=== PATIENT | female | born 1965 | race Caucasian/White ===

== ENCOUNTER → 2021-05-30 09:55 | Outpatient (BNVA) | payer BC, SELFPAY | PROVIDERS: Visit Provider Nurse Practitioner Family | DX: Z20.822 Contact with and (suspected) exposure to COVID-19 (principal) | CPT/HCPCS: 87635 ==

== ENCOUNTER → 2022-07-23 09:22 | Outpatient (BNVA) | payer OTHER, SELFPAY | PROVIDERS: Visit Provider Family Medicine | DX: I10 Essential (primary) hypertension (principal); R73.03 Prediabetes | CPT/HCPCS: 80061; 84439; 84443; 85025 ==

== ENCOUNTER → 2022-10-02 09:18 | Outpatient (BNVA) | payer OTHER, SELFPAY | PROVIDERS: Visit Provider Family Medicine | DX: M79.672 Pain in left foot (principal); W19.XXXA Unspecified fall, initial encounter | CPT/HCPCS: 73630 ==

== ENCOUNTER 2023-02-05 09:58 | Emergency (ER) | payer OTHER, SELFPAY ==
--- NOTE | 2023-02-05 10:05 | XR_ITS ---
WS: [id number] EXAMINATION: XR chest 1V portable [id number] REASON FOR EXAM: chest pain ORDER DATE: 02/05/2023 10:05 AM FINDINGS: There are perihilar and parenchymal granulomatous calcifications. Cardiomegaly is demonstrated. Ther e are no pleural effusions. XR/XR chest 1V portable [id number] IMPRESSION: CARDIOMEGALY WITH NO ACUTE PULMONARY CHANGE.
[2023-02-05 10:14] VITALS: BP 141/78; PULSE 70; RESP 19; TEMP 36.1; O2SAT 94; BMI 53.7
--- NOTE | 2023-02-05 10:21 | ECG_ITS ---
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 Measurements Intervals [place] Rate: 72 P: 51 CT: 187 QRS: 62 QRSD: 78 T: 35 QT: 355 QTc: 389 Interpretive Statements SINUS RHYTHM LOW QRS VOLTAGE IN PRECORDIAL LEADS [QRS DEFLECTION < 1.0 mV IN CHEST LEADS] POSSIBLE RIGHT VENTRICULAR CONDUCTION DELAY [RSR (QR) IN V1/V2] No previous ECG available for comparison Electronically Signed On 02-05-2023 21:05:09 CDT by Mario Oliva M.D. [id number]
[2023-02-05 10:23] VITALS: BP 106/84; PULSE 74; RESP 18; O2SAT 96
[2023-02-05 10:32] LABS: Basophils # 0.1 10^3/uL (0.0-0.1); Basophils % 0.5 %; Eosinophils # 0.2 10^3/uL (0.0-0.8); Eosinophils % 1.9 %; Hematocrit 50.1 % (37.0-47.0); Hemoglobin 15.9 g/dL (11.5-15.3); Lymphocytes % 23.8 %; Mean Corpuscular HGB Conc 31.7 g/dL (30.0-36.0); Mean Corpuscular Volume 88.4 fl (81-99); Mean Platelet Volume 9.7 fL (7.4-10.4); Monocytes # 0.9 10^3/uL (0.2-0.9); Monocytes % 7.3 %; Neutrophils # 8.29 10^3/uL (1.8-7.7); Neutrophils % 66.2 %; Nucleated Red Blood Cells % 0 %; Platelet Count 353 10^3/cmm (130-400); Red Blood Count 5.67 10^6/uL (4.1-5.3); Red Cell Distribution Width 14.7 % (12.1-15.1); White Blood Count 12.5 10^3/uL (4.0-10.0)
--- NOTE | 2023-02-05 10:32 | W.ED.SOB ---
HPI - SOB/Dyspnea General: Chief Complaint: Chest Pain Stated Complaint: Chest Pains and Pressure Time Seen by Provider: 02/05/23 10:15 Source: patient Mode of arrival: ambulatory Limitations: no limitations History of Present Illness: HPI Narrative: Patient is a 57-year-old female with a history of HTN, borderline diabetes on metformin, GERD, lower extremity swelling currently being treated with Lasix and morbid obesity here for concerns of shortness of breath and worsening lower leg swelling. Patient states she has been having intermittent twinges in the left side of her chest for several months now. She states she was not overly concerned with these until she began noticing worsening leg swelling and shortness of breath. She had been seeing her primary care for her leg swelling who had placed her on Lasix. This medication was actually increased a week ago but has not helped. Patient feels like she gets winded very easily with minimal exertion and feels like shortness of breath is worse with lying down as well. She has no known history of CHF. Has never had an echocardiogram. She states she believes she has an appointment with cardiology scheduled for next week. MD elicited complaint: shortness of breath and chest pain Onset (ago): day(s) Timing: constant Severity: moderate Exacerbating factors: lying flat and exertion Relieving factors: nothing Associated symptoms: Reports chest pain and orthopnea; Deny abdominal pain, chest congestion, dizziness, fever(s), hemoptysis, lightheadedness, nausea, palpitations, syncope or vomiting Treatment prior to arrival: none Related Data: Home oxygen amount: none Review of Systems Const: Denies: fever(s), chills, body aches, fatigue or malaise Card: Reports: chest pain, edema, swelling of feet/ankles, dyspnea on exertion and orthopnea; Denies: palpitations, irregular heart rhythm, lightheadedness, syncope, pre-syncope, leg pain with exertion or acrocyanosis Resp: Reports: dyspnea; Denies: productive cough, non-productive cough, wheezing, hemoptysis or chest congestion GI: Denies: abdominal pain, nausea, vomiting, diarrhea or change in bowel habits : Denies: flank pain, dysuria or hematuria Musc: Reports: extremity swelling; Denies: neck pain, back pain, joint redness or joint warmth Skin/Breast: Denies: rash Neuro: Denies: headache(s), numbness in extremities, weakness in extremities, sensory changes or dizziness [facility] ED PFSH: Medical History Hypertension Prediabetes Social History Smoking and tobacco status: current every day smoker cigarettes Packs smoked per day: 1 Alcohol intake: current Alcohol intake frequency: few times a week Alcohol type: hard liquor Physical Exam Const: COMMON NORMALS: no acute distress, patient oriented x3, no limitations and alert GENERAL APPEARANCE: cooperative NUTRITIONAL APPEARANCE: obese morbidly obese ORIENTATION/CONSCIOUSNESS: Yes awake, Yes oriented to person, Yes oriented to place and Yes oriented to time HENMT: COMMON NORMALS: normocephalic and atraumatic HEAD & SCALP: normal to inspection, normocephalic and atraumatic Chest: COMMONS NORMALS: normal inspection of the chest and normal palpation of entire chest wall Resp: COMMON NORMALS: normal respiratory effort and clear to auscultation bilaterally AUSCULTATION: clear to auscultation bilaterally Cardio: COMMON NORMALS: regular rate and regular rhythm RATE: regular rate RHYTHM: regular rhythm GI: COMMON NORMALS: Normal to inspection, nondistended, normoactive bowel sounds present, Soft to palpation, non-tender and no masses PALPATION: Yes Soft to palpation Extremity: COMMON NORMALS: full ROM, capillary refill normal and no calf tenderness GENERAL: Yes normal exam except as noted OTHER: bilateral LE symmetrical non-pitting edema Neuro: BRIANNA COMA SCALE: document GCS findings Brianna coma scale eye opening: Spontaneous [place] coma scale verbal response: Orientated Brianna coma scale motor response: Obey commands [place] coma scale total score: 15 COMMON NORMALS: patient oriented x3, moves all extremities, no focal motor deficits and no sensory deficits noted SENSORIUM/ORIENTATION: Yes alert, Yes oriented to person, Yes oriented to place and Yes oriented to time Skin: COMMON NORMALS: no rashes or lesions noted GENERAL SKIN EXAM: no rashes or lesions noted Course Vital Signs: Vital signs: Vital Signs Temperature 96.9 F L 02/05/23 10:14 Pulse Rate 74 02/05/23 10:23 Respiratory Rate 18 02/05/23 10:23 Blood Pressure 106/84 02/05/23 10:23 Pulse Oximetry 96 02/05/23 10:23 Oxygen Delivery Me thod Room Air 02/05/23 10:23 MDM - SOB/Dyspnea Medical Decision Making Patient clinically appears in no acute distress. She arrives with stable vital signs. Patient's work-up today showing some mild hyperkalemia at 5.3. She does take potassium supplementation along with her Lasix so we will have her hold this for a few days. She has a very mild bump in her BUN/Cr at 33/1.2. She is on several nephrotoxic medications so we will have her hold her Celebrex and Metformin have primary care or cardiology repeat this next week. Baseline troponin was slightly elevated at 14 but she has a negative delta. EKG showing no ischemic changes. CXR showing cardiomegaly. Interestingly enough her BNP is normal. Patient was ambulated in ED and although reported dyspnea-her O2 never dropped below 96%. Will go ahead and write patient for an outpatient echocardiogram. She already has cardiology appointment scheduled for next week. Return ED precautions given. Lab Data 02/05/23 10:24 02/05/23 10:24 Labs/Radiology: Radiology Impressions Chest X-Ray 02/05/23 10:05 IMPRESSION: CARDIOMEGALY WITH NO ACUTE PULMONARY CHANGE. Laboratory Results WBC 12.5 10^3/uL (4.0-10.0) H 02/05/23 10:24 RBC 5.67 10^6/uL (4.1-5.3) H 02/05/23 10:24 Hgb 15.9 g/dL (11.5-15.3) H 02/05/23 10:24 Hct 50.1 % (37.0-47.0) H 02/05/23 10:24 MCV 88.4 fl (81-99) 02/05/23 10:24 MCH 28.0 pg (28.0-34.0) 02/05/23 10:24 MCHC 31.7 g/dL (30.0-36.0) 02/05/23 10:24 RDW 14.7 % (12.1-15.1) 02/05/23 10:24 Plt Count 353 10^3/cmm (130-400) 02/05/23 10:24 MPV 9.7 fL (7.4-10.4) 02/05/23 10:24 Neut % (Auto) 66.2 % 02/05/23 10:24 Lymph % (Auto) 23.8 % 02/05/23 10:24 [place] % (Auto) 7.3 % 02/05/23 10:24 Eos % (Auto) 1.9 % 02/05/23 10:24 Baso % (Auto) 0.5 % 02/05/23 10:24 Neut # (Auto) 8.29 10^3/uL (1.8-7.7) H 02/05/23 10:24 Lymph # (Auto) 3.0 10^3/uL (0.8-4.8) 02/05/23 10:24 [place] # (Auto) 0.9 10^3/uL (0.2-0.9) 02/05/23 10:24 Eos # (Auto) 0.2 10^3/uL (0.0-0.8) 02/05/23 10:24 Baso # (Auto) 0.1 10^3/uL (0.0-0.1) 02/05/23 10:24 Nucleated RBC % (auto) 0 % 02/05/23 10:24 Nucleated RBCs # 0.0 /100WBC 02/05/23 10:24 Sodium 134 mmol/L (136-145) L 02/05/23 10:24 Potassium 5.3 mmol/L (3.5-5.1) H 02/05/23 10:24 Chloride 93 mmol/L (98-107) L 02/05/23 10:24 Carbon Dioxide 28 mmol/L (22-29) 02/05/23 10:24 Anion Gap 18.3 (5-19) 02/05/23 10:24 BUN 33 mg/dL (6-20) H 02/05/23 10:24 Creatinine 1.2 mg/dL (0.5-0.9) H 02/05/23 10:24 GFR Calculation 46.1 mL/min (90-130) L 02/05/23 10:24 Glucose 98 mg/dL (65-115) 02/05/23 10:24 Calculated Osmolality 285 mOsm/kg (285-295) 02/05/23 10:24 Calcium 10.0 mg/dL (8.5-10.5) 02/05/23 10:24 Total Bilirubin 0.2 mg/dL (0.15-1.2) 02/05/23 10:24 AST 13 U/L (0-32) 02/05/23 10:24 ALT 16 U/L (0-33) 02/05/23 10:24 Alkaline Phosphatase 112 U/L (35-105) H 02/05/23 10:24 Troponin T Baseline 14 ng/L (0-10) H 02/05/23 10:24 Troponin T 120 Minute 13.45 ng/L (0-10) H 02/05/23 12:25 Delta Troponin T -0.55 ABS# (0-10) L 02/05/23 12:25 NT-Pro-B Natriuret Pep 65 pg/mL (0-125) 02/05/23 10:24 Total Protein 8.0 g/dL (6.6-8.7) 02/05/23 10:24 Albumin 4.0 g/dL (3.5-5.2) 02/05/23 10:24 Globulin 4.0 g/dL (1.3-4.6) 02/05/23 10:24 Discharge Plan Discharge Patient Disposition: Home Clinical Impression: Bilateral edema of lower extremity, Cardiomegaly, Dyspnea Condition: Stable Prescriptions: Held potassium chloride 20 mEq tablet extended release 20 meq PO BID Hold Instructions: Resume on 02/09/23. Have potassium rechecked through primary care or cardiology next week Discontinued celecoxib 200 mg capsule 200 mg PO BID metformin 500 mg tablet 500 mg PO BID No Action Zyrtec 10 mg capsule 10 mg PO DAILY PRN (Reason: Allergy Symptoms) furosemide 40 mg tablet 80 mg PO BID fluticasone propion-salmeterol [Advair Diskus] 250-50 mcg/dose blister with device 1 inh INHALATION Q12H lisinopril 20 mg tablet 20 mg PO QAM omeprazole 20 mg capsule,delayed release(DR/EC) 20 mg PO QAM albuterol sulfate 90 mcg/actuation HFA aerosol inhaler 2 puff INHALATION Q4H PRN (Reason: Shortness Of Breath) spironolactone 50 mg tablet 50 mg PO QAM bupropion HCl 150 mg tablet extended release 24 hr 150 mg PO BID Discharge Orders: Discharge ED (Routine); Ordered 02/05/23 Ordered By: Leeanna Neff Activity Restrictions/Additional Instructions: As we discussed we will discontinue your Metformin and Celebrex at this time until we can repeat your chemistry panel and recheck your kidney labs. I will discontinue your potassium for a few days as it was slightly high today. As we discussed you need to follow-up with cardiology next week as scheduled. Case management should contact you in regards to scheduling you for an outpatient echocardiogram. 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
[2023-02-05 10:53] LABS: Alanine Aminotransferase 16 U/L (0-33); Alkaline Phosphatase 112 U/L (35-105); Anion Gap 18.3 (5-19); Aspartate Amino Transferase 13 U/L (0-32); Blood Urea Nitrogen 33 mg/dL (6-20); Carbon Dioxide 28 mmol/L (22-29); Chloride 93 mmol/L (98-107); Glomerular Filtration Rate 46.1 mL/min (90-130); Glucose 98 mg/dL (65-115); Osmolality Calculated 285 mOsm/kg (285-295); Potassium 5.3 mmol/L (3.5-5.1); Sodium 134 mmol/L (136-145); Total Bilirubin 0.2 mg/dL (0.15-1.2)
[2023-02-05 10:54] LABS: Troponin(5th) Baseline 14 ng/L (0-10)
--- NOTE | 2023-02-05 10:57 | PC.PHAR ---
PT STATES SHE TAKES CARE OF HER OWN MEDICATIONS-RX FILLED 01/09/23 30D/S FOR LASIX 80MG QAM AND 40MG EARLY AFTERNOON PT STATES INCREASED TO 80MG BID-NOTES ARE MADE IN THE PHARMACY COMMENTS
[2023-02-05 11:04] LABS: NT Pro B Type Natriuretic Pept 65 pg/mL (0-125)
[2023-02-05] MEDS: sodium chloride 0.9% 500 ML IV (11:34)
--- NOTE | 2023-02-05 12:05 | ECG_ITS ---
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 Measurements Intervals [place] Rate: 69 P: 48 DE: 191 QRS: 64 QRSD: 83 T: 36 QT: 373 QTc: 400 Interpretive Statements SINUS RHYTHM WITH OCCASIONAL SUPRAVENTRICULAR PREMATURE COMPLEXES LOW QRS VOLTAGE IN PRECORDIAL LEADS [QRS DEFLECTION < 1.0 mV IN CHEST LEADS] POSSIBLE RIGHT VENTRICULAR CONDUCTION DELAY [RSR (QR) IN V1/V2] Compared to ECG 02/05/2023 10:21:57 No significant changes Electronically Signed On 02-05-2023 21:12:18 CDT by Mario Oliva M.D. [id number]
[2023-02-05 12:54] LABS: Troponin 5 2HR 13.45 ng/L (0-10)
[2023-02-05 12:57] LABS: Troponin 5 2HR Delta -0.55 ABS# (0-10)
--- NOTE | 2023-02-06 08:43 | DCPLANNER ---
Addendum entered by Flaca Jones 02/11/23 11:31: Patient sees Dr. Beal at [facility] Addendum entered by Flaca Jones 02/06/23 08:58: Patient does not have a primary care physician listed on her chart, test case developer called patient to confirm who she sees for a primary care physician. diversity manager unable to speak with patient at this time, a voicemail was left for patient to return classification case manager phone call. Original Note: diversity manager had message to schedule an outpatient echo cardiogram for patient. diversity manager faxed signed order to centralized scheduling, who will call patient with appointment information.
== END 2023-02-05 13:26 | disposition home or self-care (01) ==
PROVIDERS: Emergency Provider Physician Assistant; PCP Family Medicine
DX: R60.0 Localized edema (principal); I51.7 Cardiomegaly; R06.00 Dyspnea, unspecified; E87.5 Hyperkalemia
CPT/HCPCS: 36415; 71045; 80053; 83880; 84484; 85025; 93005; 96360; 99285; J7040

== ENCOUNTER → 2023-02-11 10:30 | Outpatient (BNVA) | payer OTHER, SELFPAY | PROVIDERS: PCP Nurse Practitioner; Visit Provider Internal Medicine Cardiovascular Disease | DX: R06.02 Shortness of breath (principal); R60.0 Localized edema; R06.00 Dyspnea, unspecified | CPT/HCPCS: 36415; 80048; 83880; 85378 ==

== ENCOUNTER 2023-02-20 10:21 | Outpatient (CLI) | payer OTHER, SELFPAY ==
--- NOTE | 2023-02-20 10:15 | USCV_ITS ---
Laura Joshua Age: 57 Gender: F : 1965 Exam Date: 02/20/2023 10:43 Ordering Phys: Mario Oliva MD ([email or web address]) Technologist: CT Exam Location[place] [facility] [place]ication: sob PROCEDURES: The venous duplex Doppler examination of both lower extremities was performed in the standard fashion. In addition, the posterior tibial and peroneal trunk were evaluated. Bilaterally, the common femoral, superficial femoral, profunda femoral, popliteal, posterior tibial, greater saphenous veins, and the peroneal trunk were identified and interrogated in the standard fashion. These veins were found to be easily compressible with spontaneous blood flow. No evidence of insufficiency or thrombus noted. CONCLUSIONS No evidence of right lower extremity DVT. No evidence of left lower extremity DVT. Martínez Cruz MD (Electronically Signed) Final Date: 20 February 2023 11:51 S
== END 2023-02-20 10:22 | disposition home or self-care (01) ==
LOC: RAD 10:23
PROVIDERS: PCP Nurse Practitioner; Visit Provider Internal Medicine Cardiovascular Disease
DX: R60.0 Localized edema (principal)
CPT/HCPCS: 93970

== ENCOUNTER → 2023-04-06 11:05 | Outpatient (BNVA) | payer OTHER, SELFPAY | PROVIDERS: Visit Provider Internal Medicine Pulmonary Disease | DX: J44.9 Chronic obstructive pulmonary disease, unspecified (principal); J45.909 Unspecified asthma, uncomplicated; R05.3 Chronic cough; F17.210 Nicotine dependence, cigarettes, uncomplicated; R06.02 Shortness of breath; Z12.2 Encounter for screening for malignant neoplasm of respiratory organs | CPT/HCPCS: 36415; 82785; 86003 ==

== ENCOUNTER 2023-04-22 07:45 | Outpatient (CLI) | payer OTHER, SELFPAY ==
[2023-04-22 08:30] VITALS: PULSE 69; RESP 18; O2SAT 98
[2023-04-22] MEDS: albuterol 2.5 mg/3 mL Neb INHALATION (08:30)
[2023-04-22 08:35] VITALS: PULSE 58
== END 2023-04-22 07:46 | disposition home or self-care (01) ==
LOC: RT 07:45
PROVIDERS: PCP Nurse Practitioner; Visit Provider Internal Medicine Pulmonary Disease
DX: J44.9 Chronic obstructive pulmonary disease, unspecified (principal); F17.210 Nicotine dependence, cigarettes, uncomplicated; R06.02 Shortness of breath; R94.2 Abnormal results of pulmonary function studies
CPT/HCPCS: 94060; 94618; 94726; 94729; J7613

== ENCOUNTER 2023-04-23 12:17 | Outpatient (CLI) | payer OTHER, SELFPAY ==
--- NOTE | 2023-04-23 12:45 | USCV_ITS ---
Laura Joshua Age: 57 Gender: F : 1965 Exam Date: 04/23/2023 13:36 Ordering Phys: Mario Oliva MD ([email or web address]) Technologist: ALANNAH Exam Location: [facility] [place] Indication: CHRONIC HEART FAILURE, SHORTNESS OF BREATH BP: 122 / 69 HR: 99 Rhythm: Sinus Technical Quality: Suboptimal MEASUREMENTS (Male / Female) Normal Values 2D ECHO LVOT Diameter 2.0 cm LV Ejection Fraction MOD 2C 64.3 % LV Ejection Fraction 2C AL 65.8 % LA Diameter 3.0 cm LA Width 3.2 cm LA Height 4.6 cm RA Width 2.9 cm RA Height 4.6 cm Aorta at Sinotubular Diameter 2.3 cm IVC Diameter 1.3 cm M-MODE Aortic Annulus Diameter 2.4 cm LA Ao Ratio MM 1.1 MV E Point Septal Separation 0.9 cm DOPPLER AV Peak Velocity 208.0 cm/s LVOT Peak Velocity 114.0 cm/s AV Area Cont Eq vti 1.6 cm squared AV Area Cont Eq pk 1.7 cm squared MV Peak Velocity 94.0 cm/s MV Area PHT 2.2 cm squared Mitral E to A Ratio 0.9 MV E' Velocity 44.5 cm/s Mitral E to MV E' Ratio 6.5 Mitral E to LV E' Lateral Ratio 5.9 Mitral E to LV E' Septal Ratio 7.1 TR Peak Velocity 153.5 cm/s TR Peak Gradient 9.4 mmHg TR Mean Velocity 115.9 cm/s TR Mean Gradient 5.7 mmHg TR Velocity Time Integral 46.4 cm TV Peak E Velocity 56.0 cm/s Right Atrial Pressure 3.0 mmHg Pulmonary Artery Systolic Pressu 12.4 mmHg PV Peak Velocity 113.0 cm/s RV Acceleration Time 0.2 s RV Ejection Time 0.3 s RV AcT/ET 0.5 FINDINGS Left Ventricle Normal left ventricular size and systolic function, EF 70 %. No regional wall motion abnormalities. Right Ventricle Possibly of normal size and ejection fraction Right Atrium The right atrium is normal in size. Left Atrium The left atrium is normal in size. Mitral Valve No gross abnormalities noted Aortic Valve Not visualized well Tricuspid Valve No gross abnormalities noted Pulmonic Valve Pulmonic valve not well visualized. Pericardium Normal pericardium without effusion. Aorta Normal ascending aorta dimension. IVC Normal inferior vena cava. CONCLUSIONS Normal left ventricular size and systolic function, EF 70 %. No regional wall motion abnormalities. Valve morphology could not be delineated to evaluate. No gross abnormalities noted Possibly normal cardiac chamber sizes There is no pericardial effusion. There are no intracardiac masses. Technically difficult study because of the poor ultrasonic window. No similar previous studies are available for comparison Dr Mario Oliva MD [facility] (Electronically Signed) Final Date: 25 April 2023 14:16 S
== END 2023-04-23 12:18 | disposition home or self-care (01) ==
LOC: RAD 12:18
PROVIDERS: Visit Provider Internal Medicine Cardiovascular Disease
DX: I50.9 Heart failure, unspecified (principal); R06.02 Shortness of breath
CPT/HCPCS: 36415; 80048; 83880; 85378; 93306

== ENCOUNTER 2023-05-12 08:16 | Outpatient (CLI) | payer OTHER, SELFPAY ==
--- NOTE | 2023-05-12 08:45 | CT_ITS ---
WS: [id number] LDCT LUNG CANCER SCREENING TECHNIQUE: Noncontrast CT of the chest with coronal and sagittal reformatted images. CLINICAL INFORMATION: Lung cancer screening COMPARISON: None. DLP: 225.69 mGy.cm DIvol: Mean CTDIvol: 5.70 (mGy) All CT scans at [facility] use at least one of these dose optimization techniques: automat ed exposure control; mA and/or kV adjustment per patient size (includes targeted exams where dose is matched to clinical indication); or iterative reconstruction. FINDINGS: Small subpleural nodule RIGHT upper lobe measuring 4.8 mm. Tiny nodule LEFT lower lobe. Normal caliber thoracic aorta. No mediastinal or hilar lymphadenopathy. No axillary lymphadenopathy. LEFT adrenal adenoma measuring 3.5 cm. Normal GE junction. No axillary lymphadenopathy. Hypertrophic changes thoracic spine. CT/CT lung screening [id number] IMPRESSION: LUNG-RADS: 2-Benign Appearance or Behavior FOLLOW UP: 12 Month: Continue annual screening with LDCT
== END 2023-05-12 08:17 | disposition home or self-care (01) ==
PROVIDERS: PCP Internal Medicine Pulmonary Disease; Visit Provider Internal Medicine Pulmonary Disease
DX: Z12.2 Encounter for screening for malignant neoplasm of respiratory organs (principal); J44.9 Chronic obstructive pulmonary disease, unspecified
CPT/HCPCS: 36415; 71271; 82785; 86003

== ENCOUNTER 2023-09-02 07:20 | Day surgery (SDC) | payer OTHER, SELFPAY ==
[2023-09-02 07:33] VITALS: BP 148/106; PULSE 77; RESP 18; TEMP 36.1; O2SAT 98
[2023-09-02] MEDS: sodium chloride 0.9% 1,000 ML 30 ML IV (07:42)
--- NOTE | 2023-09-02 07:53 | P.ANESASSM_ITS ---
Pre-Anesthetic Assessment Height/Weight: Height 1.57 m Weight 112.037 kg Temp Pulse Resp BP Pulse Ox O2 Del Method 97.0 F L 77 18 148/106 98 Room Air 09/02/23 07:33 09/02/23 07:33 09/02/23 07:33 09/02/23 07:33 09/02/23 07:33 09/02/23 07:33 Operation Date: 09/02/23 08:30 Proposed Procedures p [id number] egd 62105 colon G0121 screen colon A risk Z87.19,R10.9(Not Applicable) - DO chriss Esposito Colonoscopy(Not Applicable) - Brodie Cortes DO Familial anesthetic complications: none Was Beta Amanuel taken within 24 hours: N/A Was Clonidine taken within 24 hours: N/A Last intake: Intake Last Liquid Date 09/01/23 Last Liquid Time 22:00 Last Solid Date 08/31/23 Last Solid Time 16:00 Social Tobacco and No alcohol Exam alert, oriented x 3 and regular rate & rhythm Airway Submandibular: within normal limits Cervical ROM: within normal limits Mallampati: Class II Dentition: false (upper) Pulmonary Asthma and Chronic Obstructive Pulmonary Disease CV/HEM Hypertension GI Gastroesophageal Reflux Disease Metabolic Morbid Obesity [facility] Osteoarthritis/DJD Neuropsych Anxiety and Depression Anesthetic Plan ASA status: 3 Anesthesia: MAC Medications/Allergies Home Medications Medication Instructions Recorded Confirmed Last Taken Type cetirizine 10 mg capsule (Zyrtec) 10 mg PO DAILY PRN Allergy Symptoms 07/10/20 08/31/23 09/02/23 05:00 History albuterol sulfate 90 mcg/actuation 2 puff inhalation PRN PRN 02/05/23 08/31/23 09/02/23 05:00 History aerosol inhaler Shortness Of Breath bupropion HCl 150 mg 24 hr tablet, 150 mg PO BID 02/05/23 08/31/23 09/02/23 05:00 History extended release fluticasone 250 mcg-salmeterol 50 1 inh inhalation Q12H 02/05/23 08/31/23 09/02/23 05:00 History mcg/dose blistr powdr for inhalation (Advair Diskus) furosemide 40 mg tablet 40 mg PO DAILY 02/05/23 08/31/23 09/02/23 05:00 History potassium chloride 20 mEq 20 meq PO BID PRN with lasix 02/05/23 08/31/23 09/02/23 05:00 History tablet,extended release spironolactone 50 mg tablet 50 mg PO QAM 02/05/23 08/31/23 09/02/23 05:00 History losartan 50 mg tablet 50 mg PO DAILY #30 tabs 04/09/23 08/31/23 09/02/23 05:00 Rx lisinopril 40 mg tablet 40 mg PO DAILY 06/05/23 08/31/23 09/02/23 05:00 History ondansetron HCl 4 mg tablet 4 mg PO Q8H 06/05/23 08/31/23 09/02/23 05:00 History meloxicam 15 mg tablet 15 mg PO DAILY 07/21/23 08/31/23 09/02/23 05:00 History pantoprazole 40 mg tablet,delayed 40 mg PO BID 6 weeks #84 tabs 07/21/23 08/31/23 09/02/23 05:00 Rx release (Protonix) Allergies Allergy/AdvReac Type Severity Reaction Status Date / Time cumin Allergy Unknown Unknown Verified 08/31/23 09:50 amoxicillin Allergy Unknown Verified 08/31/23 09:50 Penicillins Allergy Unknown Verified 08/31/23 09:50 Current Medications Generic Name Dose Route Start Last Admin Trade Name Freq PRN Reason Stop Dose Admin Sodium Chloride 1,000 mls @ 30 mls/hr 09/02/23 07:30 09/02/23 07:42 Sodium Chloride 0.9% IV 09/03/23 07:29 30 mls/hr .Q24H GOKUL Administration PFSH Anesthesia Medical History (Updated 07/21/23 @ 14:06 by Brodie Cortes DO) Basal cell carcinoma Constipation Dysfunctional uterine bleeding GERD (gastroesophageal reflux disease) Hypertension Irregular menses Moderate episode of recurrent major depressive disorder Osteoarthritis of foot, left Prediabetes Xanthelasma of eyelid Surgical History (Updated 07/21/23 @ 14:06 by Brodie Cortes DO) Hx of colonoscopy Social History Smoking and tobacco/nicotine status: current every day tobacco/nicotine user cigarettes Packs smoked per day: 1 Years cigarettes smoked: 40 [ Other cigarette details: Started at age 17] Alcohol intake: current Alcohol intake frequency: few times a week Alcohol type: hard liquor Data Anesthesia Cardiac Studies: Echocardiogram 04/23/23
--- NOTE | 2023-09-02 11:12 | PM.HP ---
Providers/Chief Complaint Primary Care Provider: DEVI Pacheco Chief Complaint: [id number] Z87.19 History of Present Illness Laura Joshua is a 57 year old female Review of Systems General: Reports: 10 or more systems reviewed and unremarkable except in HPI and below Medications/Allergies Home Medications Medication Instructions Recorded Confirmed Last Taken Type cetirizine 10 mg capsule (Zyrtec) 10 mg PO DAILY PRN Allergy Symptoms 07/10/20 08/31/23 09/02/23 05:00 History albuterol sulfate 90 mcg/actuation 2 puff inhalation PRN PRN 02/05/23 08/31/23 09/02/23 05:00 History aerosol inhaler Shortness Of Breath bupropion HCl 150 mg 24 hr tablet, 150 mg PO BID 02/05/23 08/31/23 09/02/23 05:00 History extended release fluticasone 250 mcg-salmeterol 50 1 inh inhalation Q12H 02/05/23 08/31/23 09/02/23 05:00 History mcg/dose blistr powdr for inhalation (Advair Diskus) furosemide 40 mg tablet 40 mg PO DAILY 02/05/23 08/31/23 09/02/23 05:00 History potassium chloride 20 mEq 20 meq PO BID PRN with lasix 02/05/23 08/31/23 09/02/23 05:00 History tablet,extended release spironolactone 50 mg tablet 50 mg PO QAM 02/05/23 08/31/23 09/02/23 05:00 History losartan 50 mg tablet 50 mg PO DAILY #30 tabs 04/09/23 08/31/23 09/02/23 05:00 Rx lisinopril 40 mg tablet 40 mg PO DAILY 06/05/23 08/31/23 09/02/23 05:00 History ondansetron HCl 4 mg tablet 4 mg PO Q8H 06/05/23 08/31/23 09/02/23 05:00 History meloxicam 15 mg tablet 15 mg PO DAILY 07/21/23 08/31/23 09/02/23 05:00 History pantoprazole 40 mg tablet,delayed 40 mg PO BID 6 weeks #84 tabs 07/21/23 08/31/23 09/02/23 05:00 Rx release (Protonix) Allergies Allergy/AdvReac Type Severity Reaction Status Date / Time cumin Allergy Unknown Unknown Verified 08/31/23 09:50 amoxicillin Allergy Unknown Verified 08/31/23 09:50 Penicillins Allergy Unknown Verified 08/31/23 09:50 PFSH Acute PFSH: Medical History Basal cell carcinoma Constipation Dysfunctional uterine bleeding GERD (gastroesophageal reflux disease) Hypertension Irregular menses Moderate episode of recurrent major depressive disorder Osteoarthritis of foot, left Prediabetes Xanthelasma of eyelid Surgical History Hx of colonoscopy Social History Smoking and tobacco/nicotine status: current every day tobacco/nicotine user cigarettes Packs smoked per day: 1 Years cigarettes smoked: 40 [ Other cigarette details: Started at age 17] Alcohol intake: current Alcohol intake frequency: few times a week Alcohol type: hard liquor Vitals/I&O/Wt Last Vital Signs Temp 97.0 F L 09/02/23 07:33 Pulse 77 09/02/23 07:33 Resp 18 09/02/23 07:33 BP 148/106 09/02/23 07:33 Pulse Ox 98 09/02/23 07:33 O2 Del Method Room Air 09/02/23 07:33 Weight last 48 hrs Weight 247 lb A&P Assessment and plan (1) GERD (gastroesophageal reflux disease): (2) Colon cancer screening: Plan EGD and colonoscopy Attestations Medical Necessity Statement*: Home Coding Level of Care Code Acute Code for Chg Fwd Diagnoses GERD (gastroesophageal reflux disease) K21.9 Colon cancer screening Z12.11
[2023-09-02 11:47] VITALS: BP 104/63; PULSE 68; RESP 12; TEMP 36.2; O2SAT 95
[2023-09-02 12:01] VITALS: BP 128/74; PULSE 72; RESP 16; O2SAT 94
--- NOTE | 2023-09-02 16:41 | ANE.PACU2 ---
Inpatient post-anesthesia follow up: Airway intact: Yes Vital signs: Temperature 97.1 F Pulse Rate 72 Respiratory Rate 16 Blood Pressure 128/74 Pulse Oximetry 94 Oxygen Delivery Me thod Room Air Oxygen Flow Rate 4 Fraction of Inspir ed Oxygen Hydration adequate: Yes Nausea and vomiting: No Pain level: 2 Mental status: Baseline
== END 2023-09-02 12:39 | disposition home or self-care (01) ==
PROVIDERS: PCP Nurse Practitioner; Visit Provider Surgery
PROC: 0DJ08ZZ Inspection of Upper Intestinal Tract, Via Natural or Artificial Opening Endoscopic (ICD-10-PCS; CPT 43235; principal; 2023-09-02 08:30)
PROC: 0DJD8ZZ Inspection of Lower Intestinal Tract, Via Natural or Artificial Opening Endoscopic (ICD-10-PCS; CPT 45378; 2023-09-02 08:30)
DX: Z12.11 Encounter for screening for malignant neoplasm of colon (principal); Z87.19 Personal history of other diseases of the digestive system; R10.9 Unspecified abdominal pain; K29.50 Unspecified chronic gastritis without bleeding; D12.5 Benign neoplasm of sigmoid colon; J44.9 Chronic obstructive pulmonary disease, unspecified; I10 Essential (primary) hypertension; K21.9 Gastro-esophageal reflux disease without esophagitis; E66.01 Morbid (severe) obesity due to excess calories; Z68.42 Body mass index [BMI] 45.0-49.9, adult; F17.210 Nicotine dependence, cigarettes, uncomplicated
CPT/HCPCS: 43239; 45385; 88305; 88342; J2704; J3490; J7030

== ENCOUNTER 2024-05-18 09:33 | Outpatient (CLI) | payer OTHER, SELFPAY ==
--- NOTE | 2024-05-18 10:00 | CT_ITS ---
WS: [id number] LDCT LUNG CANCER SCREENING TECHNIQUE: Noncontrast CT of the chest with coronal and sagittal reformatted images. CLINICAL INFORMATION: F17.210 - Nicotine dependence, cigarettes, uncomplicated COMPARISON: CT 05/12/2023 DLP: 124.49 mGy.cm DIvol: Mean CTDIvol: 3.20 (mGy) All CT scans at [facility] use at least one of these dose optimization techniques: automat ed exposure control; mA and/or kV adjustment per patient size (includes targeted exams where dose is matched to clinical indication); or iterative reconstruction. FINDINGS: Stable small subpleural nodule RIGHT upper lobe measuring 4.8 mm. Tiny nodule LEFT lower lobe. No new suspicious pulmonary parenchymal normalities. Normal caliber thoracic aorta. Mild coronary calcification. Minimal aortic calcification. No axillary lymphadenopathy. No mediastinal or hilar lymphadenopathy. LEFT adrenal adenoma measuring 3.5 cm unch anged. Tiny esophageal hernia. Hypertrophic changes thoracic spine. CT/CT lung screening 20071 IMPRESSION: LUNG-RADS: 2-Benign Appearance or Behavior FOLLOW UP: 12 Month: Continue annual screening with LDCT
== END 2024-05-18 09:34 | disposition home or self-care (01) ==
LOC: RAD 09:34
PROVIDERS: PCP Nurse Practitioner; Visit Provider Internal Medicine Pulmonary Disease
DX: F17.210 Nicotine dependence, cigarettes, uncomplicated (principal); Z12.2 Encounter for screening for malignant neoplasm of respiratory organs; R91.1 Solitary pulmonary nodule; D35.02 Benign neoplasm of left adrenal gland
CPT/HCPCS: 71271

== ENCOUNTER → 2025-03-02 09:39 | Outpatient (BNVA) | payer MEDICAID, SELFPAY | PROVIDERS: PCP Nurse Practitioner; Visit Provider Student in an Organized Health Care Education/Training Program | DX: R15.9 Full incontinence of feces (principal) | CPT/HCPCS: 99203 ==

== ENCOUNTER 2025-05-09 11:36 | Outpatient (CLI) | payer BC, MEDICAID, SELFPAY ==
--- NOTE | 2025-05-09 | ECG_ITS ---
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 Interpretive Statements EXERCISE STRESS TEST EXERCISE DATA: The patient was exercised by Karan protocol. Baseline heart rate was 103 beats per minute. Baseline blood pressure was 139/105 millimeters of mercury. Maximal predicted heart rate was 160 beats per minute. Maximum heart rate achieved was 146, which was 91% of the maximum predicted heart rate. Maximum blood pressure was 175/113 millimeters of mercury. Total exercise time was 2 minutes and 59 seconds. Maximum METs achieved was 4.6. The reason for ending the test was maximal effort achieved. The patient complained of shortness of breath and leg fatigue during the stress test, which then resolved at the end of the test. ELECTROCARDIOGRAM: BASELINE: Showed sinus tachycardia, normal axis, frequent PACs, no significant ST-T changes at the baseline noted. [] EXERCISE: At the peak exercise level, [] No significant ST-T changes suggestive of ischemia noted. [] RECOVERY: During the recovery period, heart rate dropped appropriately. No significant ST-T changes in the recovery suggestive of ischemia noted. [] CONCLUSION: 1. Exercise capacity is poor 2. Heart rate response was appropriate 3. Blood pressure response was appropriate. 4. Symptoms not suggestive of ischemia. Electronically Signed On 05-11-2025 12:48:56 CDT by Tez George M.D. [email or web address]
[2025-05-09 12:00] VITALS: BMI 44.9
[2025-05-09 12:27] VITALS: BP 168/106; PULSE 94
== END 2025-05-09 11:37 | disposition home or self-care (01) ==
LOC: CDL 11:37
PROVIDERS: PCP Nurse Practitioner; Visit Provider Internal Medicine Cardiovascular Disease
DX: R07.9 Chest pain, unspecified (principal)
CPT/HCPCS: 93017